=== PATIENT | female | born 1985 | race Hispanic/Latino ===

== ENCOUNTER 2017-11-17 21:32 | Emergency (ER) | payer OTHER ==
[2017-11-17 21:51] VITALS: BP 112/73; PULSE 80; RESP 20; TEMP 98.1; O2SAT 98
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
== END 2017-11-17 23:23 | disposition home or self-care (01) ==
LOC: C.ER 21:32
DX: T14.8XXA Other injury of unspecified body region, initial encounter (principal); V49.9XXA Car occupant (driver) (passenger) injured in unspecified traffic accident, initial encounter